=== PATIENT | female | born 1950 | race African-American/Black ===

== ENCOUNTER 2018-12-03 17:44 | Emergency (ER) | payer MEDICARE, MEDICAID ==
[~2018-12-03] VITALS: Ht 157.5 cm; Wt 59.9 kg
--- NOTE | 2018-12-03 17:50 | NUR ---
pt. not in room
[2018-12-03 18:16] VITALS: BP 181/98
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
--- NOTE | 2018-12-03 18:44 | NUR ---
ED Nurse Note: ermd on bedside.
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
--- NOTE | 2018-12-03 19:00 | NUR ---
ED Nurse Note: Pt went to ct with tech
[2018-12-03 19:25] VITALS: BP 182/97
--- NOTE | 2018-12-03 19:25 | NUR ---
ED Nurse Note: RECIEVED REPORT FROM [facility] TO [facility], PT IN BED RETURNING FROM IMAGING DEPARTMENT, PT IS AWAKE, ALERT AND ORIENTED X 4, HAS PATENT IV LINE, DENIES CP, NO SOB OR LABORED BREATHING, PT PLACED ON CARDIAC MONITORING AND HAS ELEVATED B/P, MD INFORMED, WILL RESUME CARE ORDERED WHILE WAITING FOR RESULTS AND DISPOSITION.
[2018-12-03] MEDS ORDERED: Acetaminophen 500mg (ES) tab ORAL ONE (19:45)
[2018-12-03 21:00] VITALS: BP 166/94
--- NOTE | 2018-12-03 21:00 | NUR ---
ED Nurse Note: PT BEING DISCHARGED TO HOME, PT IS AWAKE, ALERT AND ORIENTED X 4, PT MEDICATED FOR PAIN, MEDS EFFECTIVE WITH PAIN LEVEL AT 5/10, P[T IS AMBULATORY, GIVEN F/U INFO, AFTER CARE INSTRUCTIONS AND RE-VERBALIZES S/S TO MONITOR FOR, PT ARMBAND REMOVED, NAD NOTED DURING D/C TO HOME.
[2018-12-03 21:15] VITALS: BP 166/94
--- NOTE | 2018-12-04 10:10 | Diagnostic Imaging Report ---
Indication: Neck and head pain, trauma Technique: Spiral acquisitions obtained through the cervical spine. No IV contrast utilized. Multiplanar reconstructions were generated. Total dose length product 1459.02 mGycm. CTDIvol(s) 70.38,10.71 mGy. Dose reduction achieved using automated exposure control. Comparison: none Findings: There is slight straightening of the normal cervical lordosis. There is slight anterior offset of C4 on C5 and of C5 on C6. The remaining bony alignment is normal. The vertebral body heights are preserved. No acute fractures. No dislocations. There is mild degenerative disc narrowing at C3-4 as well as left-sided facet arthrosis. No significant disc bulge or protrusion or spinal stenosis. There is moderate narrowing of the right neural foramen. There is moderate degenerative disc narrowing at C4-5. There is mild to moderate bilateral neural foraminal stenosis. No significant disc bulge or protrusion or spinal stenosis. There is bilateral facet arthrosis. There is moderate degenerative disc narrowing at C5-6. There is bilateral facet arthrosis. No significant disc bulge or protrusion or spinal stenosis or neural foraminal stenosis. At the remaining disc levels, no significant disc bulge or protrusion, spinal stenosis, or neural foraminal narrowing. The included lung apices are clear. The included extraspinal soft tissues and upper aerodigestive tract are unremarkable. Impression: No acute bony trauma Multilevel degenerative changes, as detailed above This agrees with the preliminary interpretation provided overnight by [facility]. The CT scanner at [facility] is accredited by the [employer] and the scans are performed using protocols designed to limit radiation exposure to as low as reasonably achievable to attain images of sufficient resolution adequate for diagnostic evaluation.
--- NOTE | 2018-12-04 10:12 | Diagnostic Imaging Report ---
Indications: Trauma, pain, head pain Technique: Spiral acquisitions obtained through the brain. Angled axial and coronal 5 x 5 mm slices were reconstructed. Total dose length product 1459.02 mGycm. CTDI vol(s) 70.38,10.71 mGy. Dose reduction achieved using automated exposure control Comparison: None. Findings: There is mild age-related prominence of the ventricles and extra axial CSF spaces. There is periventricular deep white matter low-attenuation. There is an old lacunar infarct in the right jones radiata noted. Visualized orbits and sinuses are unremarkable. The mastoids are clear. The calvarium is intact. 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 The CT scanner at [facility] is accredited by the [employer] and the scans are performed using protocols designed to limit radiation exposure to as low as reasonably achievable to attain images of sufficient resolution adequate for diagnostic evaluation.
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
--- NOTE | 2018-12-04 10:57 | Diagnostic Imaging Report ---
Indication: Trauma, pelvic pain Technique: Noncontrast spiral acquisitions obtained through the pelvis. Multiplanar reconstructions generated. Total dose length product 361 mGycm. CTDIvol(s) 13.06 mGy. Dose reduction achieved using automated exposure control Comparison: none Findings: There is anterior offset of L4 on L5. There is degenerative narrowing of the L4-5 and L5-S1 discs. No acute fractures. No dislocations. The hip joint spaces are preserved. There is slight infiltration of the subcutaneous fat of the right hip region, may indicate a slight degree of soft tissue contusion. No intrapelvic hematoma demonstrated. Calcified mass within the uterus and other calcifications presumably represent old degenerated fibroids. The bladder is unremarkable. The remaining pelvic viscera are unremarkable. Impression: No acute bony trauma Probable right hip minimal soft tissue contusion Calcified uterine fibroids The CT scanner at [facility] is accredited by the [employer] and the scans are performed using protocols designed to limit radiation exposure to as low as reasonably achievable to attain images of sufficient resolution adequate for diagnostic evaluation.
--- NOTE | 2018-12-04 12:59 | Diagnostic Imaging Report ---
Indication: Chest pain Technique: One view of the chest Comparison: none Findings: No acute infiltrates, effusions, or congestion. Tortuous calcified aorta. Normal heart size. Upper mediastinum unremarkable. Impression: No acute process.
== END 2018-12-03 21:25 | disposition home or self-care (01) ==
LOC: EMR 18:32
DX: S09.90XA Unspecified injury of head, initial encounter (principal); S16.1XXA Strain of muscle, fascia and tendon at neck level, initial encounter; S70.01XA Contusion of right hip, initial encounter; W19.XXXA Unspecified fall, initial encounter; Y92.811 Bus as the place of occurrence of the external cause; M54.5 Low back pain
CPT/HCPCS: 70450; 71045; 71250; 72125; 72192; 99284

== ENCOUNTER 2018-12-09 17:31 | Emergency (ER) | payer MEDICARE, MEDICAID ==
[~2018-12-09] VITALS: Ht 165.1 cm; Wt 59.9 kg
[2018-12-09 17:35] VITALS: BP 175/96
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
[2018-12-09] MEDS ORDERED: ACETAMINOPHEN500 M5 ORAL (18:15)
[2018-12-09 18:20] VITALS: BP 152/88
--- NOTE | 2018-12-09 18:20 | NUR ---
ER DISCHARGE NOTE: Patient is cleared to be discharged per ERMD, pt is aox4, on room air, with stable vital signs. pt was given dc and prescription instructions, pt was able to verbalize understanding, pt id band removed without complications. pt is able to ambulate with steady gait. pt took all belongings.
== END 2018-12-09 18:30 | disposition home or self-care (01) ==
LOC: EMR 18:25
DX: I10 Essential (primary) hypertension (principal); S70.01XA Contusion of right hip, initial encounter; S30.0XXA Contusion of lower back and pelvis, initial encounter; W19.XXXA Unspecified fall, initial encounter; Y92.811 Bus as the place of occurrence of the external cause
CPT/HCPCS: 99282